=== PATIENT | female | born 1990 | race Caucasian/White ===

== ENCOUNTER 2018-05-07 13:55 | Emergency (ER) | payer MEDICAID ==
--- NOTE | 2018-05-07 14:51 | C.PDOC ---
History Of Present Illness Patient reports she was eating [place] food prior to arrival and acutely developed swelling to the left lateral neck/mastoid region. Denies dyspnea, wheezing, difficulty tolerating secretions. States that the swelling has almost completely subsided now, but the area is yeast distiller to touch. She has never had similar symptoms in the past. No dental pain, throat pain, or ear pain. Time Seen by Provider: 05/07/18 14:13 Chief Complaint (Nursing): ENT Problem Past Medical History Reviewed: Historical Data Vital Signs: Last Vital Signs Temp 97.6 F 05/07/18 13:59 Pulse 62 05/07/18 13:59 Resp 18 05/07/18 13:59 BP 132/86 05/07/18 13:59 Pulse Ox 96 05/07/18 13:59 ED Report Viewed: Yes - Medical History PMH: Migraine Family History: States: Hypertension - Social History Hx Tobacco Use: No Hx Alcohol Use: No Hx Substance Use: No - Immunization History Hx Tetanus Toxoid Vaccination: No Hx Influenza Vaccination: No Hx Pneumococcal Vaccination: No Review Of Systems Except As Marked, All Systems Reviewed And Found Negative. Constitutional: Negative for: Fever, Chills ENT: Positive for: Other (L neck swelling). Negative for: Ear Pain, Ear Discharge, Mouth Pain, Mouth Swelling, Throat Pain, Throat Swelling Cardiovascular: Negative for: Chest Pain Respiratory: Negative for: Cough, Shortness of Breath Gastrointestinal: Negative for: Nausea, Vomiting, Abdominal Pain, Diarrhea Skin: Negative for: Rash Neurological: Negative for: Change in Speech Physical Exam - Physical Exam Appears: Well, Non-toxic, No Acute Distress Skin: Normal Color, Warm, Dry, No Rash Ear(s): Bilateral: Normal Nose: Normal Oral Mucosa: Moist Tongue: Normal Appearing Lips: Normal Appearing Teeth: Normal Dentition Gingiva: Normal Appearing Throat: Normal, No Erythema, No Exudate, No Drooling, No Mass Neck: Other (Minimal swelling to L angle of mandible, to mastoid region. Mildly tender. No erythema, induration, or fluctuance. No urticaria or other rash.) Respiratory: Normal Breath Sounds Gastrointestinal/Abdominal: Normal Exam Extremity: Normal ROM Neurological/Psych: Oriented x3 Gait: Steady ED Course And Treatment O2 Sat by Pulse Oximetry: 96 Medical Decision Making Medical Decision Making: Patient in no respiratory distress. Reports neck swelling began acutely while eating, and has since almost completely resolved. Exam unremarkable except for some minimal swelling and tenderness near the L ear. Ear and pharynx exam normal. Will treat patient with IM toradol and decadron and discharge. Allergic reaction vs possible salivary gland infection/inflammation. Advised returning to the ED for any new or worsening symptoms. Disposition - Disposition Disposition Time: 14:56 Condition: STABLE Additional Instructions: BERENICE ADRIAN, thank you for letting us take care of you today. Your provider was Anisha Aj MD and you were treated for LT SIDE FACE PAIN. The emergency medical care you received today was directed at your acute symptoms. If you were prescribed any medication, please fill it and take as directed. It may take several days for your symptoms to resolve. Return to the Emergency Department if your symptoms worsen, do not improve, or if you have any other problems. Please contact your doctor or call one of the physicians/clinics you have been referred to that are listed on the Patient Visit Information form that is included in your discharge packet. Bring any paperwork you were given at discharge with you along with any medications you are taking to your follow up visit. Our treatment cannot replace ongoing medical care by a primary care provider outside of the emergency department. Thank you for allowing the [facility] team to be part of your care today. If you had an X-Ray or CT scan: A Radiologist will review the ED reading if any change in treatment is needed we will contact you. If you had a blood, urine, or wound culture: It will take several days for the results, if any change in treatment is needed we will contact you. If you had an STI test: It will take 48 hours for the results. Please call after 1 week if you have not heard back. Instructions: Parotitis, Food Allergy - Clinical Impression Clinical Impression: Jaw swelling
[2018-05-07 15:34] VITALS: BP 109/71; PULSE 56; RESP 20; TEMP 97.8; O2SAT 99
== END 2018-05-07 15:46 | disposition home or self-care (01) ==
LOC: C.ER 13:55
DX: R22.1 Localized swelling, mass and lump, neck (principal)
CPT/HCPCS: 96372; 99283; J1885